=== PATIENT | male | born 1945 | race Caucasian/White ===

== ENCOUNTER → 2019-10-13 11:26 | Outpatient (CLI) | payer MEDICARE, OTHER, SELFPAY ==
[2019-10-13 12:09] LABS: International Normalized Ratio 1.6; Prothrombin Time (Protime)PT. 18.3 SECONDS (11.7-14.9)
== END ==
DX: I48.0 Paroxysmal atrial fibrillation (principal)
CPT/HCPCS: 36415; 85610

== ENCOUNTER → 2019-10-21 09:19 | Outpatient (CLI) | payer MEDICARE, OTHER, SELFPAY | DX: I48.0 Paroxysmal atrial fibrillation (principal) | CPT/HCPCS: 36416; 85610 ==

== ENCOUNTER → 2019-10-25 09:07 | Outpatient (CLI) | payer MEDICARE, OTHER, SELFPAY ==
[2019-10-28 10:43] LABS: Prothrombin Time Fingerstick 32.8 SEC (11.9-14.4)
== END ==
DX: I48.0 Paroxysmal atrial fibrillation (principal)
CPT/HCPCS: 36416; 85610

== ENCOUNTER → 2019-11-01 08:19 | Outpatient (CLI) | payer MEDICARE, OTHER, SELFPAY ==
[2019-11-01 09:42] LABS: Prothrombin Time Fingerstick 29.9 SEC (11.9-14.4)
== END ==
LOC: LAB.FUTURE 08:21 → LAB 09:18
DX: I48.0 Paroxysmal atrial fibrillation (principal)
CPT/HCPCS: 36416; 85610

== ENCOUNTER → 2020-12-05 14:53 | Outpatient (CLI) | payer MEDICARE, OTHER, SELFPAY ==
--- NOTE | 2020-12-05 14:58 | CT_ITS ---
STUDY: CT CHEST, ABDOMEN T PELVIS WITH CONTRAST REASON FOR EXAM: Male, 75 years old. SEE BELOW -- Chronic lymphocytic leukemia of B-cell type not having achieved remission RADIATION DOSAGE (If Supplied By Facility): CTDIvol = ( 17.70 ) mGy, DLP = ( 2593.56 ) mGycm TECHNIQUE: Transaxial imaging was performed following intravenous administration of Oral and amp; IV REDICAT and amp; 100ML ISOVUE 300. Individualized dose optimization techniques were used for this CT. COMPARISON: No relevant priors. FINDINGS: CHEST Mildly enlarged bilateral axillary lymph nodes. The lungs are normal. There is no demonstrated pleural abnormality. There are calcifications of the coronary arteries. Normal mediastinum. Normal hilar regions. Normal unenhanced pulmonary arteries. There is atherosclerotic calcification of the aortic arch with tortuosity and elongation of the aortic arch and descending thoracic aorta. There are multi-level degenerative changes of the thoracic spine. Splenomegaly. ABDOMEN The visualized lung bases are unremarkable. Coronary artery calcification. Normal liver. There are surgical clips in the gallbladder fossa consistent with a prior cholecystectomy. There is moderate splenomegaly. Normal pancreas. Normal bilateral adrenal glands. Normal right kidney. Normal left kidney. Normal visualized stomach. Normal small intestine. There are multiple colonic diverticula consistent with diverticulosis. The appendix is visualized and appears normal. There is diffuse atherosclerotic calcification of the abdominal aorta and its major visceral branches, without a demonstrated aneurysm. Normal inferior vena cava. There is borderline retroperitoneal lymphadenopathy with enlarged nodes no greater than 10mm in the short axis diameter. Increased density in the mesenteric fat of the root of the mesentery with multiple small lymph nodes. Normal abdominal wall. Normal osseous structures. PELVIS Mild degree of diffuse bladder wall thickening although the bladder is not completely distended. Normal visualized small intestine. There are multiple colonic diverticula of the sigmoid colon consistent with chronic diverticulosis. There is no pelvic fluid. There is no pelvic lymphadenopathy or mass lesion. There is diffuse atherosclerotic calcification of the pelvic arteries. CT/CT Chest, Abd, Pel w/Contrast IMPRESSION: Moderate degree of splenomegaly. Small retroperitoneal lymph nodes. Increased density within the fat in the root of the mesentery with small lymph nodes in the root of the mesentery. Electronically Signed: Awais Cantrell MD at 10:49 EDT , Service support ,
--- NOTE | 2020-12-05 15:00 | CT_ITS ---
STUDY: CT SOFT TISSUE NECK WITH CONTRAST REASON FOR EXAM: Male, 75 years old. SEE BELOW -- Chronic lymphocytic leukemia of B-cell type not having achieved remission. Left cervical adenopathy. RADIATION DOSAGE (If Supplied By Facility): CTDIvol = ( 17.70 ) mGy, DLP = ( 2596.56 ) mGycm TECHNIQUE: The patient was scanned in a multi-detector CT scanner. High resolution transaxial imaging was performed following intravenous administration of Oral and amp; IV REDICAT and amp; 100ML ISOVUE 300. Sagittal and coronal images were reconstructed. Individualized dose optimization techniques were used for this CT. COMPARISON: None. FINDINGS: Normal bilateral parotid glands. Normal bilateral clasp machine operator spaces. Normal bilateral parapharyngeal spaces. Normal bilateral carotid spaces. Normal bilateral sublingual and submandibular glands and spaces. Normal visualized nasopharynx. Normal retropharyngeal space. Normal perivertebral space. Normal visualized bilateral faucial tonsils. The visualized tongue, tongue base and oropharynx are normal. There are minimally enlarged lymph nodes of the neck, with preservation of normal fahad architecture, consistent with a reactive lymph hyperplasia. The largest lymph node is in the anterior triangle of the right-sided neck measuring 1.2 cm. There is no demonstrated solid or cystic mass lesion. There is no abnormal contrast enhancement. Normal epiglottis, bilateral vallecula and hypopharynx. The pre-epiglottic and paraglottic adipose spaces are normal. Normal visualized bilateral piriform sinuses, aryepiglottic folds, vocal cords, and arytenoid-cricoid articulations. Normal subglottic trachea. Normal bilateral lobes of the thyroid gland. Normal visualized pulmonary apices. Mild mucosal thickening of the maxillary sinuses bilaterally. There is multilevel degenerative changes of the cervical spine. CT/Soft Tissue Neck WITH Contrast IMPRESSION: Mildly enlarged bilateral cervical lymph nodes. The largest lymph node measures 1.2 cm. Electronically Signed: Awais Cantrell MD at 10:15 EDT , Service support ,
== END ==
DX: C91.10 Chronic lymphocytic leukemia of B-cell type not having achieved remission (principal)
CPT/HCPCS: 70491; 71260; 74177; Q9967